=== PATIENT | female | born 1965 | race Caucasian/White ===

== ENCOUNTER 2018-07-12 20:02 | Emergency (ER) | payer MEDICAID ==
[~2018-07-12] VITALS: Ht 160 cm; Wt 67.1 kg
[2018-07-12 20:11] VITALS: Ht 160 cm; Wt 67.1 kg
[2018-07-12 20:54] LABS: PLATELET COUNT 180 x10^3mcL (130-400)
[2018-07-12 20:57] LABS: RED CELL DISTRIBUTION WIDTH 14.7 % (11.5-14.5)
[2018-07-12 21:10] LABS: BAND NEUTROPHIL 15 % (0-10); MONOCYTE 1 % (0-7); SEGMENTED NEUTROPHILS 74 % (37-75)
[2018-07-12 21:12] LABS: PLATELET MORPHOLOGY PLATELETS NORMAL; rbc morphology (normal/abnorm) NORMAL (NORMAL)
[2018-07-12 21:21] LABS: ALKALINE PHOSPHATASE 63 U/L (46-116); ALT/SGPT 27 U/L (14-59); AST/SGOT 33 U/L (15-37); BILIRUBIN TOTAL 0.48 mg/dL (0.20-1.00); CALCIUM 8.1 mg/dL (8.5-10.1); CARBON DIOXIDE 25.9 mmol/L (21-32); CHLORIDE SERUM 96 mmol/L (98-107); CREATININE SERUM 0.7 mg/dL (0.6-1.0); GFR1 > 60 mL/min; GLUCOSE SERUM 125 mg/dL (74-106); LIPASE 85 IU/L (73-393); SODIUM SERUM 132 mmol/L (136-145); TOTAL PROTEIN, SERUM 7.6 g/dL (6.4-8.2)
[2018-07-12 21:24] LABS: ALBUMIN 3.3 g/dL (3.4-5.0); POTASSIUM SERUM 2.8 mmol/L (3.5-5.1)
[2018-07-13 01:30] VITALS: BP 126/73
== END 2018-07-13 01:30 | disposition home or self-care (01) ==
LOC: ED 20:02
PROVIDERS: Emergency Medicine
DX: K52.9 Noninfective gastroenteritis and colitis, unspecified (principal); N39.0 Urinary tract infection, site not specified; E87.6 Hypokalemia; E86.0 Dehydration; Z88.2 Allergy status to sulfonamides
CPT/HCPCS: 87804; J2270; J2405; J3480